=== PATIENT | female | born 1970 | race Hispanic/Latino ===

== ENCOUNTER 2020-12-23 09:19 | Outpatient (CLI) | payer OTHER, BC | END 2020-12-23 09:20 | disposition home or self-care (01) | LOC: CSHCT 09:19 | PROVIDERS: ATTEND Psychiatry & Neurology Clinical Neurophysiology | DX: C50.811 Malignant neoplasm of overlapping sites of right female breast (principal); R16.2 Hepatomegaly with splenomegaly, not elsewhere classified; K76.0 Fatty (change of) liver, not elsewhere classified | CPT/HCPCS: 71260; 74177 ==

== ENCOUNTER 2021-06-20 09:25 | Outpatient (CLI) | payer OTHER, BC | END 2021-06-20 09:26 | disposition home or self-care (01) | LOC: CSHCT 09:25 | PROVIDERS: ATTEND Psychiatry & Neurology Clinical Neurophysiology | DX: Z08 Encounter for follow-up examination after completed treatment for malignant neoplasm (principal); K76.0 Fatty (change of) liver, not elsewhere classified; N28.1 Cyst of kidney, acquired; Z90.11 Acquired absence of right breast and nipple; Z85.3 Personal history of malignant neoplasm of breast | CPT/HCPCS: 71260; 74177 ==

== ENCOUNTER 2024-03-03 08:02 | Outpatient (CLI) | payer BC | END 2024-03-03 08:03 | disposition home or self-care (01) | LOC: CSHCT 08:02 | PROVIDERS: ATTEND Psychiatry & Neurology Clinical Neurophysiology | DX: C50.911 Malignant neoplasm of unspecified site of right female breast (principal) | CPT/HCPCS: 71260; 74177 ==